=== PATIENT | male | born 1995 | race Caucasian/White ===

== ENCOUNTER 2018-12-02 20:05 | Emergency (ER) | payer BC ==
[~2018-12-02] VITALS: Ht 177.8 cm; Wt 74.8 kg
[2018-12-02 20:17] VITALS: BP 123/77
--- NOTE | 2018-12-02 20:19 | NUR ---
TO LOBBY A/W BED AMBULATORY, TYREES
--- NOTE | 2018-12-02 20:51 | NUR ---
PT TAKEN TO BED 10.
--- NOTE | 2018-12-02 21:00 | NUR ---
PT TOMÁS GIRLFRIEND C/O HEADACHE X3 WEEKS. PT STATES HE WAS INTOXICATION A MONTH AGO AND HIT HIS HEAD ON A CURB, AND A WEEK LATER H/A STARTED. DENIES LOC. +NAUSEA TODAY W/O VOMITING. PT STATES INTERMITTENT H/A X3 WEEKS, PAIN 6/10 PRESSURE, RADIATES FROM LEFT TEMPORAL LOB TO RIGHT FRONTAL LOBE. STRONG HAND THREAD GRINDER BL. BREATHING EQUAL AND UNLABORED; LUNG SOUND CLEAR BL. SPEECH CLEAR, PT ACTING APPROPRIATLY. PUPILS: EQUAL AND REACTIVE. PT IN BED; BED IN LOWER LOCKED POSITION. PENDING ER MD RAMOS. PMH: ASTHMA RX: ZANTAC, ALBUTEROL Addendum: 12/02/18 at 2113 by [email or web address] PT TOMÁS JENNINGSIENMarquis C/O HEADACHE X3 WEEKS. PT STATES HE WAS INTOXICATION A MONTH AGO AND HIT HIS HEAD ON A CURB, AND A WEEK LATER H/A STARTED. DENIES LOC. +NAUSEA TODAY W/O VOMITING. PT STATES INTERMITTENT H/A X3 WEEKS, PAIN 6/10 PRESSURE, RADIATES FROM LEFT TEMPORAL LOB TO RIGHT FRONTAL LOBE. STRONG HAND THREAD GRINDER BL. BREATHING EQUAL AND UNLABORED; LUNG SOUND CLEAR BL. SPEECH CLEAR, PT ACTING APPROPRIATLY. PUPILS: EQUAL AND REACTIVE. PT IN BED; BED IN LOWER LOCKED POSITION. PENDING ER MD RAMOS. -PT STATES HE TOOK EXCEDRINE AT HOME TODAY AT 1200 W/O RELIEF. PMH: ASTHMA RX: ZANTAC, ALBUTEROL
[2018-12-02] MEDS ORDERED: KETOROLAC 30 MG/ML VIAL IM ONE (21:50)
--- NOTE | 2018-12-02 21:58 | NUR ---
KETOROLAC 30 MG IM ADM TO LEFT DELTOID AT THIS TIME. PT TOLERATED WELL. NO BLEEDING, BANDAGE APPLIED.
[2018-12-02] MEDS ORDERED: KETOROLAC 30 MG/ML VIAL ONE (22:07)
--- NOTE | 2018-12-02 22:30 | NUR ---
NADR TO MEDICATION, PAIN 3/10 AT THIS TIME.
--- NOTE | 2018-12-02 22:36 | NUR ---
Patient discharged with v/s stable. Patient acting appropriatly, patient states pain has decreased to 3/10 and is ready to go home. Written and verbal after care instructions given and explained. Patient alert, oriented and verbalized understanding of instructions. Ambulatory with steady gait. All questions addressed prior to discharge. ID band removed. Patient advised to follow up with PMD. Rx of Ibuprofen, and Amoxicillin given. Patient educated on indication of medication including possible reaction and side effects. Opportunity to ask questions provided and answered.
[2018-12-02 22:47] VITALS: BP 119/79
== END 2018-12-02 22:36 | disposition home or self-care (01) ==
LOC: MED 20:05
DX: J32.9 Chronic sinusitis, unspecified (principal); J45.909 Unspecified asthma, uncomplicated
CPT/HCPCS: 70450; 96372; 99284; J1885

== ENCOUNTER 2019-01-15 22:59 | Emergency (ER) | payer BC ==
[~2019-01-15] VITALS: Ht 177.8 cm; Wt 77.1 kg
[2019-01-15 23:02] VITALS: BP 129/66
--- NOTE | 2019-01-15 23:06 | NUR ---
PT AMBULATED TO BED 8. PROVIDED WITH URINE CUP.
--- NOTE | 2019-01-15 23:22 | NUR ---
23 YO M BIB SELF AND GIRLFRIEND PRESENTS TO ED C/O 04/22 SHARP ABD PAIN TO THE LLQ AND ULQ. HE STATES PAIN HAS BEEN NOTICEABLE X 2 MONTHS BUT HAS BECOME PROGRESSIVELY WORSE X 1 WEEK. PT DENIES NVD BUT ADMITS TO CONSTIPATION EVERY FEW DAYS. DENIES FEVER, CHILLS. -- PT ALERT, CALM, COOPERATIVE. ANSWERING QUESTIONS APPROPRIATELY. BEHAVIOR APPROPRIATE. -- SKIN PINK, WARM, DRY. BREATHING EVEN, UNLABORED. -- LAST BM: TODAY, NORMAL. PMH-- ASTHMA
[2019-01-15 23:24] LABS: BASOPHILS # (AUTO) 0.1 K/uL (0.00-0.22); BASOPHILS % (AUTO) 0.8 % (0.0-2.0); EOSINOPHILS # (AUTO) 0.7 K/uL (0-0.4); EOSINOPHILS % (AUTO) 6.7 % (0.0-4.0); HEMATOCRIT 43.5 % (36-52); HEMOGLOBIN 14.8 g/dL (12.0-18.0); LYMPHOCYTES # (AUTO) 3.7 K/uL (2.0-11.5); LYMPHOCYTES % (AUTO) 33.9 % (20.5-51.1); MEAN CORPUSCULAR HEMOGLOBIN 30 pg (27-31); MEAN CORPUSCULAR HGB CONC 34 g/dL (33-37); MEAN CORPUSCULAR VOLUME 89.5 fL (80-94); MONOCYTES # (AUTO) 0.9 K/uL (0.8-1.0); NEUTROPHILS # (AUTO) 5.5 K/uL (1.8-7.7); NEUTROPHILS % (AUTO) 50.6 % (42.2-75.2); PLATELET COUNT (AUTO) 358 K/uL (140-450); RED BLOOD CELL COUNT(AUTO) 4.85 MIL/uL (4.20-6.10); RED CELL DISTRIBUTION WIDTH 12.7 % (11.6-13.7); WHITE BLOOD COUNT (AUTO) 10.8 K/uL (4.8-10.8)
[2019-01-15 23:27] LABS: APPEARANCE,URINE CLEAR (CLEAR); BILIRUBIN,URINE NEGATIVE (NEGATIVE); BLOOD, URINE NEGATIVE (NEGATIVE); COLOR,URINE YELLOW (YELLOW); LEUKOCYTE ESTERASE ,URINE NEGATIVE (NEGATIVE); NITRITE, URINE NEGATIVE (NEGATIVE); PH,URINE 6.5 (5.0-9.0); UGLUCOSE NEGATIVE (NEGATIVE)
[2019-01-15 23:36] LABS: ANION GAP 11.3 (8-16); CARBON DIOXIDE 27.6 mmol/L (21-32); CREATININE 0.9 mg/dL (0.7-1.3); POTASSIUM 3.9 mmol/L (3.5-5.1)
[2019-01-15 23:41] LABS: ALBUMIN 4.3 g/dL (3.4-5.0); TOTAL BILIRUBIN 0.3 mg/dL (0.0-1.0)
--- NOTE | 2019-01-15 23:49 | NUR ---
PT TO XRAY VIA WHEELCHAIR.
[2019-01-16 00:10] VITALS: BP 129/66
--- NOTE | 2019-01-16 00:10 | NUR ---
Patient discharged with v/s stable. Written and verbal after care instructions given and explained. Patient alert, oriented and verbalized understanding of instructions. Ambulatory with steady gait. All questions addressed prior to discharge. ID band removed. Patient advised to follow up with PMD. Rx of Miralax and Elixir given. Patient educated on indication of medication including possible reaction and side effects. Opportunity to ask questions provided and answered.
== END 2019-01-16 00:10 | disposition home or self-care (01) ==
LOC: MED 22:59
DX: K56.7 Ileus, unspecified (principal); R07.81 Pleurodynia; J45.909 Unspecified asthma, uncomplicated
CPT/HCPCS: 36415; 74022; 80053; 81003; 83690; 85025; 99284

== ENCOUNTER 2019-03-23 20:14 | Emergency (ER) | payer BC ==
[~2019-03-23] VITALS: Ht 177.8 cm; Wt 73.9 kg
--- NOTE | 2019-03-23 20:28 | NUR ---
PT TAKEN TO BED 6
[2019-03-23 20:34] VITALS: BP 113/73
--- NOTE | 2019-03-23 20:45 | NUR ---
PT PRESENTS TO ED WITH C/O SHARP /10 RLQ PAIN X 4 DAYS. RADIATING TO RIGHT BACK. STATES BLOATING, NAUSEA, PASSING LESS GAS, DIARRHEA. LBM YESTERDAY, DIARRHEA, NO BLOOD IN STOOL. DENIES VOMITTING. DENIES ALLEVIATING OR AGGRAVATING FACTORS. PT PLACED INTO BED, PENDING MD RAMOS.
--- NOTE | 2019-03-23 21:07 | NUR ---
PT TAKEN TO XRAY
[2019-03-23] MEDS ORDERED: LACTULOSE 20 GM/30 ML UDC PO ONE (21:35)
[2019-03-23] MEDS ORDERED: LACTULOSE 20 GM/30 ML UDC ONE (22:15)
[2019-03-23 22:21] VITALS: BP 110/71
--- NOTE | 2019-03-23 22:21 | NUR ---
Patient discharged with v/s stable. Written and verbal after care instructions given and explained. Patient alert, oriented and verbalized understanding of instructions. Ambulatory with steady gait. All questions addressed prior to discharge. ID band removed. Patient advised to follow up with PMD. Rx of MINERAL OIL, MIRALAX given. Patient educated on indication of medication including possible reaction and side effects. Opportunity to ask questions provided and answered.
== END 2019-03-23 22:21 | disposition home or self-care (01) ==
LOC: MED 20:14
DX: K59.00 Constipation, unspecified (principal); R19.7 Diarrhea, unspecified; J45.909 Unspecified asthma, uncomplicated
CPT/HCPCS: 74022; 99283

== ENCOUNTER 2019-06-15 18:28 | Emergency (ER) | payer BC ==
[~2019-06-15] VITALS: Ht 177.8 cm; Wt 74.4 kg
[2019-06-15 18:31] VITALS: BP 130/64
--- NOTE | 2019-06-15 18:42 | NUR ---
WAIT AT LOBBY
--- NOTE | 2019-06-15 18:57 | NUR ---
TO ED 11 WITH STEADY GAIT.
--- NOTE | 2019-06-15 19:15 | NUR ---
23 Y/O MALE PRESENTS TO ED, C/O BURNING SENSATION VOIDING 04/22. PT STATES BURNING SENSATION STARTED 1 WEEK AGO. PT C/O OF FLANK PAIN BUT DENIES ANY ABDOMINAL PAIN. HAS NAUSEA THAT PRESENTED TODAY; NO VOMITING. PT DENIES TAKING ANY MEDICATIONS TO HELP ALLEVIATE PAIN. ERMD AWARE. WILL CONTINUE TO MONITOR.
[2019-06-15 20:00] LABS: APPEARANCE,URINE CLEAR (CLEAR); BILIRUBIN,URINE NEGATIVE (NEGATIVE); BLOOD, URINE NEGATIVE (NEGATIVE); COLOR,URINE YELLOW (YELLOW); LEUKOCYTE ESTERASE ,URINE NEGATIVE (NEGATIVE); NITRITE, URINE NEGATIVE (NEGATIVE); UGLUCOSE NEGATIVE (NEGATIVE)
[2019-06-15 20:30] VITALS: BP 130/64
--- NOTE | 2019-06-15 20:30 | NUR ---
Dr. Mancuso examining patient.
--- NOTE | 2019-06-15 20:30 | NUR ---
PT DISCHARGED BY DR HUNG PROVIDED WITH PAPERWORK. RX ERORL EDUCATED PT REGARDING MEDICATION AND S/E. EDUCATED PT REGARDING D/C DIAGNOSIS AND INSTRUCTIONS. PT VERBALIZED UNDERSTANDING OF TEACHING. TOLD PT TO FOLLOW UP WITH PCP AND WHEN TO RETURN TO ED. PT VSS. ALL QUESTIONS ANSWERED.
== END 2019-06-15 20:30 | disposition home or self-care (01) ==
LOC: MED 18:28
DX: S29.012A Strain of muscle and tendon of back wall of thorax, initial encounter (principal); J45.909 Unspecified asthma, uncomplicated; R30.0 Dysuria; X58.XXXA Exposure to other specified factors, initial encounter; Y92.89 Other specified places as the place of occurrence of the external cause; Y93.89 Activity, other specified; Y99.8 Other external cause status
CPT/HCPCS: 81003; 99283

== ENCOUNTER 2019-06-16 22:31 | Emergency (ER) | payer BC ==
[~2019-06-16] VITALS: Ht 177.8 cm; Wt 74.4 kg
[2019-06-16 22:36] VITALS: BP 132/78
--- NOTE | 2019-06-16 22:38 | NUR ---
TO LOBBY A/W BED AMBULATORY
--- NOTE | 2019-06-16 23:11 | NUR ---
PT AMBULATED TO BED 5.
[2019-06-16 23:46] VITALS: BP 132/78
--- NOTE | 2019-06-16 23:46 | NUR ---
23 Y/O M PRESENTS TO ED WITH C/O LT TESTICULAR PAIN X0530. AAOX4. PT REPORTS INTERMINTENT URINARY BURNING AND LOWER BACK PAIN. 9/10 PAIN, BURNING. PT SEEN IN ER ON 06/15/19 FOR BACK PAIN AND GIVEN PAIN MEDICATION. NO FLANK TENDERNESS. PT DENIES PENILE DISCHARGE AND FOUL ODOR. WILL CONTINUE TO MONITOR.
[2019-06-17 00:14] LABS: APPEARANCE,URINE CLEAR (CLEAR); BILIRUBIN,URINE NEGATIVE (NEGATIVE); BLOOD, URINE NEGATIVE (NEGATIVE); COLOR,URINE YELLOW (YELLOW); LEUKOCYTE ESTERASE ,URINE NEGATIVE (NEGATIVE); NITRITE, URINE NEGATIVE (NEGATIVE); UGLUCOSE NEGATIVE (NEGATIVE)
[2019-06-17 00:15] LABS: BASOPHILS # (AUTO) 0.1 K/uL (0.00-0.22); BASOPHILS % (AUTO) 1.3 % (0.0-2.0); EOSINOPHILS % (AUTO) 9.8 % (0.0-4.0); HEMATOCRIT 44.8 % (36-52); HEMOGLOBIN 15.3 g/dL (12.0-18.0); LYMPHOCYTES # (AUTO) 3.4 K/uL (2.0-11.5); MEAN CORPUSCULAR HEMOGLOBIN 31 pg (27-31); MEAN CORPUSCULAR HGB CONC 34 g/dL (33-37); MEAN CORPUSCULAR VOLUME 90.1 fL (80-94); MONOCYTES # (AUTO) 0.9 K/uL (0.8-1.0); MONOCYTES % (AUTO) 8.8 % (1.7-9.3); NEUTROPHILS # (AUTO) 4.6 K/uL (1.8-7.7); NEUTROPHILS % (AUTO) 46.1 % (42.2-75.2); PLATELET COUNT (AUTO) 322 K/uL (140-450); RED BLOOD CELL COUNT(AUTO) 4.97 MIL/uL (4.20-6.10)
--- NOTE | 2019-06-17 00:44 | NUR ---
US AT BEDSIDE.
[2019-06-17 00:58] LABS: ANION GAP 12.3 (8-16); CARBON DIOXIDE 27.8 mmol/L (21-32); CREATININE 0.8 mg/dL (0.7-1.3); POTASSIUM 4.1 mmol/L (3.5-5.1)
--- NOTE | 2019-06-17 01:30 | NUR ---
PT SEEN WITH EYES CLOSED. VISIBLE CHEST RISE AND FALL NOTED. WILL CONTINUE TO MONITOR.
[2019-06-17] MEDS ORDERED: ACETAMINOPHEN 325 MG TAB PO ONE (01:50)
[2019-06-17] MEDS ORDERED: KETOROLAC 30 MG/ML VIAL IM ONE (01:50)
--- NOTE | 2019-06-17 02:38 | NUR ---
Patient discharged with v/s stable. Written and verbal after care instructions given and explained. Patient verbalized understanding. Ambulatory with steady gait. All questions addressed prior to discharge. Advised to follow up with PMD.
== END 2019-06-17 02:38 | disposition home or self-care (01) ==
LOC: MED 22:31
DX: N43.3 Hydrocele, unspecified (principal); N50.3 Cyst of epididymis; J45.909 Unspecified asthma, uncomplicated
CPT/HCPCS: 36415; 76870; 80048; 81003; 85025; 96372; 99284; J1885; Q0092

== ENCOUNTER 2020-04-12 16:03 | Emergency (ER) | payer BC ==
[~2020-04-12] VITALS: Ht 172.7 cm; Wt 76.0 kg
[2020-04-12 16:22] VITALS: BP 140/88
--- NOTE | 2020-04-12 16:27 | NUR ---
PT AMBULATEDTO ROOM 4 WITH STEADY GAIT.
--- NOTE | 2020-04-12 16:35 | NUR ---
C/O RT FLANK PAIN X 2-3 WEEKS -TRAUMA, PAIN 7/10 , PT AOX4 , AFIBRILE , AMBULATORY WITH STEADY GAIT , PINK PALPEBRAL CONJUNCTIVA , ANICTERIC SCLERA , SCE, FLAT SOFT ABDOMEN. HX-IBS -N/V/D MEDS-CAN NOT RECALL AT THIS TIME
--- NOTE | 2020-04-12 16:48 | NUR ---
PA AT BEDSIDE EVALUATING PT.
[2020-04-12] MEDS ORDERED: KETOROLAC 60 MG/2 ML VIAL IM ONE (16:55)
[2020-04-12 17:17] VITALS: BP 140/88
--- NOTE | 2020-04-12 17:18 | NUR ---
Patient discharged with v/s stable. Written and verbal after care instructions given and explained regarding flasnk pain. Patient alert, oriented and verbalized understanding of instructions. Ambulatory with steady gait. All questions addressed prior to discharge. ID band removed. Patient advised to follow up with PMD. Rx of naprosyn and flexeril given. Patient educated on indication of medication including possible reaction and side effects. Opportunity to ask questions provided and answered.
== END 2020-04-12 17:18 | disposition home or self-care (01) ==
LOC: MED 16:03
DX: R10.9 Unspecified abdominal pain (principal); J45.909 Unspecified asthma, uncomplicated
CPT/HCPCS: 81002; 96372; 99283; J1885

== ENCOUNTER 2022-03-19 21:35 | Emergency (ER) | payer SELFPAY ==
[~2022-03-19] VITALS: Ht 177.8 cm; Wt 88.5 kg
[2022-03-19 21:40] VITALS: BP 146/86
--- NOTE | 2022-03-20 01:28 | NUR ---
pt taken to bed 08.
--- NOTE | 2022-03-20 01:41 | NUR ---
26 yo m bib self with c/c of 7/10 rt foot pain x1wk. pt has ingrown nail to 2nd digit, redness and swelling observed. pt also has what appears to be athletes foot, inbetween 2nd-3rd digits, left foot has between 2nd and 3rd digit as well. pt states he has been doing warm water and salt baths as well as using lotrimin ultra with minimal relief. pt states it began on left foot and passed to rt foot. states rt foot isnt getting better but left foot is. denies fever and chills. hx:asthma nka
--- NOTE | 2022-03-20 01:50 | NUR ---
Dr. Ahumada examining patient.
[2022-03-20] MEDS ORDERED: SULFAMETH/TRIMETH DS 800/160MG 1 TAB PO ONE (02:00)
[2022-03-20] MEDS ORDERED: ACETAMINOPHEN EXTRA STRENGTH 500 MG TAB PO ONE (02:00)
[2022-03-20] MEDS ORDERED: LIDOCAINE MPF 1% 10 MG/ML VIAL INJ ONE (02:00)
--- NOTE | 2022-03-20 03:10 | NUR ---
pt is awake and alert using phone.
[2022-03-20] MEDS ORDERED: IBUPROFEN 800 MG TAB PO ONE (03:50)
[2022-03-20] MEDS ORDERED: ITRA100C2 PO (03:53)
[2022-03-20] MEDS ORDERED: ACET-10509 PO (03:53)
[2022-03-20] MEDS ORDERED: SULF-59 PO (03:53)
[2022-03-20] MEDS ORDERED: KEN.1C TP (03:58)
[2022-03-20 04:15] VITALS: BP 136/84
--- NOTE | 2022-03-20 04:15 | NUR ---
Patient discharged with v/s stable. Written and verbal after care instructions given and explained. Patient alert, oriented and verbalized understanding of instructions. Ambulatory with steady gait. All questions addressed prior to discharge. ID band removed. Patient advised to follow up with PMD. Rx of tylenol, itraconazole, kenalog, bactrim given. Patient educated on indication of medication including possible reaction and side effects. Opportunity to ask questions provided and answered.
== END 2022-03-20 04:15 | disposition home or self-care (01) ==
LOC: MED 21:35
DX: L60.0 Ingrowing nail (principal); B35.3 Tinea pedis; R03.0 Elevated blood-pressure reading, without diagnosis of hypertension; J45.909 Unspecified asthma, uncomplicated; F17.200 Nicotine dependence, unspecified, uncomplicated
CPT/HCPCS: 11730; 99284; J2001

== ENCOUNTER 2024-04-27 19:15 | Emergency (ER) | payer MEDICAID ==
[~2024-04-27] VITALS: Ht 177.8 cm; Wt 77.1 kg
[~2024-04-27 19:15] MED LIST: ACET500T99 PO; ITRA100C2 PO; KEN.1C TP; SULF-59 PO
[2024-04-27 19:28] VITALS: BP 138/67; PULSE 85; RESP 18; TEMP 97.8; O2SAT 100
[2024-04-27 20:10] VITALS: O2SAT 99
[2024-04-27] MEDS: NACL 0.9% 1,000 ML IV ONE ×3 (20:12→22:02)
[2024-04-27 20:37] LABS: BASOPHILS % (AUTO) 0.2 % (0.0-2.0); EOSINOPHILS # (AUTO) 0.3 K/uL (0-0.4); EOSINOPHILS % (AUTO) 3.5 % (0.0-4.0); HEMATOCRIT 42.1 % (36-52); HEMOGLOBIN 14.2 g/dL (12.0-18.0); LYMPHOCYTES # (AUTO) 3.3 K/uL (2.0-11.5); LYMPHOCYTES % (AUTO) 36.6 % (20.5-51.1); MEAN CORPUSCULAR HEMOGLOBIN 31 pg (27-31); MEAN CORPUSCULAR HGB CONC 34 g/dL (33-37); MONOCYTES # (AUTO) 0.7 K/uL (0.8-1.0); MONOCYTES % (AUTO) 7.8 % (1.7-9.3); NEUTROPHILS # (AUTO) 4.7 K/uL (1.8-7.7); NEUTROPHILS % (AUTO) 51.9 % (42.2-75.2); PLATELET COUNT (AUTO) 337 K/uL (140-450); RED BLOOD CELL COUNT(AUTO) 4.63 MIL/uL (4.20-6.10); RED CELL DISTRIBUTION WIDTH 12.6 % (11.6-13.7)
[2024-04-27 21:01] LABS: ALBUMIN 3.6 g/dL (3.4-5.0); ANION GAP 17.4 (8-16); CALCIUM 8.4 mg/dL (8.5-10.1); CARBON DIOXIDE 22.1 mmol/L (21-32); CREATININE 0.9 mg/dL (0.6-1.3); POTASSIUM 3.5 mmol/L (3.5-5.1); TOTAL BILIRUBIN 0.5 mg/dL (0.0-1.0)
[2024-04-27 21:31] VITALS: BP 111/49; PULSE 80; RESP 18; TEMP 98.1; O2SAT 98
[2024-04-27] MEDS: INSULIN REGULAR, HUMAN 100 UNIT/ML VIAL SUBQ ONE (22:01)
[2024-04-27] MEDS: CALCIUM CARBONATE 500 MG TAB PO SCH (22:02)
[2024-04-27] MEDS: hydrOXYzine PAMOATE 25 MG CAP PO STA (22:02)
== END 2024-04-27 22:39 | disposition home or self-care (01) ==
LOC: MED 19:15
DX: R20.2 Paresthesia of skin (principal); E10.65 Type 1 diabetes mellitus with hyperglycemia; E83.51 Hypocalcemia; Z79.899 Other long term (current) drug therapy
CPT/HCPCS: 36415; 80053; 82948; 85025; 93005; 96360; 96361; 96372; 99284; J1815; J7030; Q0177